=== PATIENT | female | born 1985 | race Caucasian/White ===

== ENCOUNTER 2019-06-07 22:42 | Emergency (ER) | payer OTHER ==
[~2019-06-07] VITALS: Ht 165.1 cm; Wt 108.9 kg
--- NOTE | 2019-06-07 23:11 | NUR ---
PT KYLAH C/O "BACK SPASM/PAIN" SHOOTING DOWN BILATERAL LEGS SINCE 6M THIS MORNING, AWAITING MD SHANNON
[2019-06-07] MEDS ORDERED: MORPHINE SULFATE INJ 4 MG/ML DISP.SYRIN ONE (23:25)
[2019-06-07] MEDS ORDERED: ONDANSETRON 4 MG TAB.RAPDIS ONE (23:25)
[2019-06-07] MEDS: ONDANSETRON 4 MG TAB.RAPDIS SL ONE (23:29)
[2019-06-07] MEDS: MORPHINE SULFATE INJ 2 MG/ML DISP.SYRIN IM ONE (23:30)
[2019-06-08 00:44] LABS: APPEARANCE,URINE Clear (CLEAR); COLOR,URINE Yellow (YELLOW); PROTEIN,URINE Negative (NEGATIVE); UGLUCOSE Negative (NEGATIVE)
[2019-06-08 00:45] LABS: BILIRUBIN,URINE Negative (NEGATIVE); BLOOD, URINE Negative Ery/uL (NEGATIVE); KETONES,URINE Negative (NEGATIVE); LEUKOCYTE ESTERASE ,URINE Negative (NEGATIVE); NITRITE, URINE Negative (NEGATIVE); UROBILINOGEN,URINE 0.2 EU/dL (0.2)
[2019-06-08] MEDS ORDERED: KETOROLAC TROMETHAMINE INJ 60 MG/2 ML VIAL IM ONE (01:35)
[2019-06-08] MEDS: KETOROLAC TROMETHAMINE INJ 60 MG/2 ML VIAL IM ONE (01:39)
--- NOTE | 2019-06-08 01:40 | NUR ---
Patient discharged to home in stable condition. Written and verbal after care instructions given. Patient verbalizes understanding of instruction. ambulatory with a steady gait noted. pt [id number] no acute distress noted, resp even and unlabored. advide pt not to drive or operate nay machinery due to pt was given narcotic medicine. pt verbalize understanding. pt family member at bedside to take pt home.
[2019-06-08 01:42] VITALS: BP 134/76
== END 2019-06-08 01:44 | disposition home or self-care (01) ==
LOC: ER 22:49
DX: M54.42 Lumbago with sciatica, left side (principal); F41.9 Anxiety disorder, unspecified
CPT/HCPCS: 81001; 84703; 96372 ×2; 99283; J1885; J2270; Q0162; 81000-TC